=== PATIENT | male | born 1985 | race Caucasian/White ===

== ENCOUNTER 2019-07-13 11:41 | Emergency (ER) | payer SELFPAY ==
[2019-07-13 11:50] VITALS: TEMP 98
[2019-07-13 12:24] LABS: BASOPHILS % (AUTO) 2 % (0-3); EOSINOPHILS % (AUTO) 5 % (0-9); HEMATOCRIT 48 % (39-53); HEMOGLOBIN 15.5 gm/dl (13.5-17.7); LYMPHOCYTES % (AUTO) 33.1 % (10-50); MEAN CORPUSCULAR HEMOGLOBIN 31.6 pg (27.0-32.0); MONOCYTES % (AUTO) 8.1 % (0-12); NEUTROPHILS % (AUTO) 52.3 % (37-80)
[2019-07-13 12:31] LABS: MEAN CORPUSCULAR VOLUME 99 fL (80-100)
[2019-07-13 12:47] LABS: ALBUMIN 3.9 gm/dl (3.4-5.0); BILIRUBIN,TOTAL 0.4 mg/dl (0.2-1.0); CALCIUM 9.1 mg/dl (8.5-10.1); CARBON DIOXIDE 31.2 mEq/L (21-32); CREATININE 1.04 mg/dl (0.80-1.30); MAGNESIUM 1.7 mg/dl (1.8-2.4); THYROID STIMULATING HORMONE 2.95 uIU/ml (0.358-3.740); TOTAL PROTEIN 7.4 gm/dl (6.4-8.2)
[2019-07-13 12:48] VITALS: BP 127/61; PULSE 74; RESP 16; O2SAT 98
[2019-07-13 12:48] LABS: ALCOHOL 0.003 gm/dl (0.000-0.08)
[2019-07-13 13:38] LABS: APPEARANCE,URINE Clear; BILIRUBIN,URINE NEGATIVE (NEGATIVE); COLOR,URINE Yellow; GLUCOSE, URINE (UA) NEGATIVE (NEGATIVE); KETONES,URINE NEGATIVE (NEGATIVE); LEUKOCYTE ESTERASE ,URINE NEGATIVE (NEGATIVE); NITRATE,URINE NEGATIVE (NEGATIVE); OCCULT BLOOD,URINE NEGATIVE (NEG-TRACE); PH,URINE 8.5; UROBILINOGEN,URINE 0.2 (0.2-1.0 EU)
[2019-07-13] MEDS ORDERED: MAGNESIUM OXIDE 400 MG TAB PO ONE (13:42)
[2019-07-13 13:49] LABS: AMPHETAMINES NEGATIVE (NEGATIVE); BARBITUATES NEGATIVE (NEGATIVE); BENZODIAZEPINES NEGATIVE (NEGATIVE); CANNABINOL(THC) NEGATIVE (NEGATIVE); COCAINE(COC) NEGATIVE (NEGATIVE); METHAMPHETAMINES NEGATIVE (NEGATIVE); OPIATES(OPI) NEGATIVE (NEGATIVE); OXYCODONE(OXY) NEGATIVE (NEGATIVE); PROPOXYPHENE(PPX) NEGATIVE (NEGATIVE)
[2019-07-13 13:54] LABS: BACTERIA NEGATIVE (< 1+); CRYSTALS NEGATIVE (0-3 AVE/HPF); EPITHELIAL CELLS 0-2 (SQUAMOUS); RBC,URINE NEG (0-3AV/HPF); WBC,URINE 0-1 (0-5AV/HPF)
[2019-07-13] MEDS ORDERED: MAGNESIUM OXIDE 400 MG TAB ONE (14:27)
== END 2019-07-13 14:40 | DRG 312 ==
LOC: ED 11:41
DX: R55 Syncope and collapse (principal); R41.82 Altered mental status, unspecified
CPT/HCPCS: 36415; 80053; 80305; 80307; 81001; 83735; 84443; 85025; 93005; 99283; A9270-GY